=== PATIENT | male | born 1950 | race African-American/Black ===

== ENCOUNTER 2017-07-03 12:44 | Emergency (ER) | payer OTHER ==
[~2017-07-03] VITALS: Ht 182.9 cm; Wt 81.6 kg
--- NOTE | 2017-07-03 12:44 | NUR ---
PATIENT TO ED C/O SOB AND COUGH. PATIENT IS AAO4. APPEARS IN NO APPARENT DISTRESS. RESPIRATION EVEN AND UNLABORED. SKIN IS WARM TO TOUCH AND NON DIAPHORETIC. AFEBRILE. VSS.
[2017-07-03] MEDS ORDERED: ALBUTEROL FS 2.5 MG/3 ML VIAL.NEB ONE (12:59)
[2017-07-03] MEDS ORDERED: IPRATROPIUM NEB FS 0.5 MG/2.5 ML AMPUL.NEB ONE (12:59)
[2017-07-03] MEDS ORDERED: predniSONE 20 MG TABLET PO ONE (13:00)
[2017-07-03] MEDS ORDERED: ALBUTEROL FS 2.5 MG/3 ML VIAL.NEB NEB ONE (13:00)
[2017-07-03] MEDS ORDERED: IBUPROFEN 400 MG TABLET PO ONE (13:00)
[2017-07-03] MEDS ORDERED: IPRATROPIUM NEB FS 0.5 MG/2.5 ML AMPUL.NEB NEB ONE (13:00)
[2017-07-03] MEDS ORDERED: IBUPROFEN 600 MG TABLET PO ONE (13:03)
[2017-07-03] MEDS ORDERED: predniSONE 10 MG TABLET ONE (13:04)
[2017-07-03] MEDS ORDERED: predniSONE 20 MG TABLET ONE (13:04)
[2017-07-03] MEDS ORDERED: IBUPROFEN 400 MG TABLET ONE (13:06)
[2017-07-03 13:13] LABS: BASOPHILS # (AUTO) 0.4 /CMM (0.0-0.2); BASOPHILS % (AUTO) 4.2 % (0.0-2.0); EOSINOPHILS % (AUTO) 0.1 % (0.0-6.0); HEMATOCRIT 42 % (39-51); HEMOGLOBIN 14.1 g/dL (13.5-17.5); LYMPHOCYTES # (AUTO) 0.3 /CMM (0.8-4.8); LYMPHOCYTES % (AUTO) 3.4 % (20.0-44.0); MEAN CORPUSCULAR HEMOGLOBIN 29 PG (26.0-33.0); MEAN CORPUSCULAR HGB CONC 34 g/dl (31.0-36.0); MEAN CORPUSCULAR VOLUME 86 fL (80-96); MONOCYTES # (AUTO) 0.7 /CMM (0.1-1.30); MONOCYTES % (AUTO) 7.1 % (2.0-12.0); NEUTROPHILS # (AUTO) 8.8 /CMM (1.8-8.9); NEUTROPHILS % (AUTO) 85.2 % (43.0-81.0); PLATELET COUNT (AUTO) 137 /CMM (150-450); RED BLOOD CELL COUNT(AUTO) 4.86 MIL/uL (4.5-6.0); WHITE BLOOD COUNT (AUTO) 10.2 K/uL (4.3-11.0)
[2017-07-03 13:21] LABS: CALCIUM, SERUM 8.8 mg/dL (8.5-10.1); CREATININE 1.4 mg/dL (0.6-1.3); POTASSIUM 3.6 mmol/L (3.5-5.1)
[2017-07-03 13:42] VITALS: BP 162/93
--- NOTE | 2017-07-03 13:42 | NUR ---
Patient discharged to home in stable condition. Written and verbal after care instructions given. Patient verbalizes understanding of instruction.
== END 2017-07-03 14:02 | disposition home or self-care (01) ==
LOC: ER 12:46
DX: J44.1 Chronic obstructive pulmonary disease with (acute) exacerbation (principal); F17.200 Nicotine dependence, unspecified, uncomplicated
CPT/HCPCS: 36415; 71010; 80048; 85025; 93005; 94640; 99285; 99406; A4606; J7512 ×2; Z7610